=== PATIENT | male | born 1930 | race Caucasian/White ===

== ENCOUNTER 2018-07-22 08:58 | Inpatient (IN) | payer MEDICARE, BC, OTHER ==
[~2018-07-22] VITALS: Ht 180.3 cm; Wt 77.0 kg
[2018-07-22] MEDS ORDERED: ASPI-1265 PO (09:25)
[2018-07-22] MEDS ORDERED: TERA2CAP4 PO (09:25)
[2018-07-22 09:26] LABS: BASOPHILS % (AUTO) 0.4 % (0-1); EOSINOPHILS # (AUTO) 0.1 X10'3 (0-0.9); EOSINOPHILS % (AUTO) 1.8 % (0-6); HEMATOCRIT 41.7 % (42.0-52.0); HEMOGLOBIN 13.3 g/dl (14.0-17.9); LYMPHOCYTES # (AUTO) 1.1 X10'3 (1.1-4.8); LYMPHOCYTES % (AUTO) 18.5 % (21-51); MEAN CORPUSCULAR HEMOGLOBIN 28.6 PG (27.0-31.0); MEAN CORPUSCULAR HGB CONC 31.9 % (33.0-36.5); MEAN CORPUSCULAR VOLUME 89.5 FL (78-98); MONOCYTES # (AUTO) 0.5 X10'3 (0-0.9); MONOCYTES % (AUTO) 7.8 % (2-12); NEUTROPHILS # (AUTO) 4.3 X10'3 (1.8-7.7); NEUTROPHILS % (AUTO) 71.5 % (42-75); PLATELET COUNT 109 X10'3 (140-440); RED BLOOD COUNT 4.65 X10'6 (4.70-6.10); RED CELL DISTRIBUTION WIDTH 14.8 % (11.5-14.5)
[2018-07-22] MEDS ORDERED: NIA500ERT PO (09:26)
[2018-07-22] MEDS ORDERED: SIMV20TA5 PO (09:26)
[2018-07-22] MEDS ORDERED: GLYC10.7 (09:26)
[2018-07-22] MEDS ORDERED: metoprolol tartrate 1mg/ml inj IV ONE ×3 (09:35→11:10)
[2018-07-22 09:40] LABS: ALANINE AMINOTRANSFERASE 22 U/L (12-78); ALBUMIN 3.3 G/DL (3.4-5.0); ALBUMIN/GLOBULIN RATIO 1.1 (1.1-1.5); ALKALINE PHOSPHATASE 75 IU/L (46-116); ANION GAP 10 (8-16); ASPARTATE AMINO TRANSFERASE 23 U/L (10-37); BLOOD UREA NITROGEN 26 MG/DL (7-18); BUN/CREATININE RATIO 20.5 (5.4-32.0); CALCIUM 8.7 MG/DL (8.5-10.1); CHLORIDE 107 MMOL/L (99-107); CREATININE 1.27 MG/DL (0.60-1.10); GLUCOSE 97 MG/DL (70-104); POTASSIUM 4.3 MMOL/L (3.5-5.1); SODIUM 144 MMOL/L (135-145); TOTAL CARBON DIOXIDE 27.3 MMOL/L (24-32); TOTAL PROTEIN 6.2 G/DL (6.4-8.2); eGFR 54 ML/MIN
[2018-07-22] MEDS ORDERED: furosemide 10 MG/1 ML 10ml inj IV ONE (09:45)
[2018-07-22 09:47] LABS: MAGNESIUM 1.8 MG/DL (1.5-2.4)
[2018-07-22] MEDS ORDERED: normal saline 1000ML IV soln IVB ONE (10:20)
[2018-07-22] MEDS ORDERED: HYDROmorphone inj. 0.5 MG/0.5 ML DISP.SYRIN IV PRN (10:20)
[2018-07-22] MEDS ORDERED: LORazepam 2 mg/ml vial IV ONE (10:20)
[2018-07-22] MEDS ORDERED: metoclopramide 5 mg/ml inj IV ONE (10:20)
[2018-07-22] MEDS ORDERED: diltiazem 5mg/ml 5ml inj. IV ONE ×3 (11:40→12:40)
[2018-07-22] MEDS ORDERED: diltiazem 30mg tablet PO ONE ×3 (11:40→15:20)
[2018-07-22] MEDS ORDERED: enoxaparin 100mg/ml syringe SUBCUT ONE (13:15)
[2018-07-22] MEDS ORDERED: enoxaparin 80mg/0.8ml syringe SUBCUT ONE (13:20)
[2018-07-22] MEDS ORDERED: iohexol 350MG/ML 100ml bottle IV ONE (14:30)
[2018-07-22] MEDS ORDERED: mag hydrox/Alum hydrox/simeth 30ml oral suspension PO PRN (16:15)
[2018-07-22] MEDS ORDERED: magnesium 4gm in 100ml NS 100 ML IV PRN (16:15)
[2018-07-22] MEDS ORDERED: potassium Cl 40MEQ/NS 500ml 500 ML IV PRN ×2 (16:15)
[2018-07-22] MEDS ORDERED: morphine 2 MG/ML inj. syringe IV PRN (16:15)
[2018-07-22] MEDS ORDERED: potassium Cl 20 mEq SR tablet PO PRN ×2 (16:15)
[2018-07-22] MEDS ORDERED: HYDROcodone/acetaminophen 5mg/325mg tablet PO PRN (16:15)
[2018-07-22] MEDS ORDERED: magnesium 1gm/100ml D5W IVPB 100 ML IV PRN (16:15)
[2018-07-22] MEDS ORDERED: magnesium Cl slow-release 64mg tablet PO PRN (16:15)
[2018-07-22] MEDS ORDERED: acetaminophen 325mg tablet PO PRN ×2 (16:15)
[2018-07-22] MEDS ORDERED: ondansetron/PF 4mg/2ml inj IV PRN (16:15)
[2018-07-22] MEDS: normal saline 1000ml 1,000 ML IV SCH (16:59)
[2018-07-22] MEDS: diltiazem-NS 100mg/100ml 100 ML IV SCH (17:25)
[2018-07-22 17:50] VITALS: BP 113/90
[2018-07-22 19:00] VITALS: BP 121/84
[2018-07-22] MEDS: Terazosin 1mg capsule PO SCH (20:51)
[2018-07-22] MEDS: docusate sod 100mg capsule PO SCH (20:51)
[2018-07-22] MEDS: heparin, porcine 5000 units/ml vial SQ SCH (20:51)
[2018-07-22] MEDS: atorvastatin 10mg tablet PO SCH (20:52)
[2018-07-22 23:00] VITALS: BP 103/59
[2018-07-23] VITALS (11 sets, daily range): BP systolic 98–123; BP diastolic 75–96
[2018-07-23] MEDS: albuterol 2.5 MG/3 ML nebule NEB SCH ×3 (02:00→20:37)
[2018-07-23 05:13] LABS: BASOPHILS % (AUTO) 0.4 % (0-1); EOSINOPHILS # (AUTO) 0.2 X10'3 (0-0.9); EOSINOPHILS % (AUTO) 3.1 % (0-6); HEMATOCRIT 38.9 % (42.0-52.0); HEMOGLOBIN 12.3 g/dl (14.0-17.9); MEAN CORPUSCULAR HEMOGLOBIN 28.3 PG (27.0-31.0); MEAN CORPUSCULAR HGB CONC 31.6 % (33.0-36.5); MEAN CORPUSCULAR VOLUME 89.4 FL (78-98); MEAN PLATELET VOLUME 9.2 FL (7.4-10.4); MONOCYTES # (AUTO) 0.5 X10'3 (0-0.9); MONOCYTES % (AUTO) 9.7 % (2-12); NEUTROPHILS # (AUTO) 2.8 X10'3 (1.8-7.7); NEUTROPHILS % (AUTO) 50.8 % (42-75); PLATELET COUNT 95 X10'3 (140-440); RED BLOOD COUNT 4.35 X10'6 (4.70-6.10); RED CELL DISTRIBUTION WIDTH 14.4 % (11.5-14.5); WHITE BLOOD COUNT 5.6 X10'3 (4.5-11.0)
[2018-07-23 06:25] LABS: ALANINE AMINOTRANSFERASE 17 U/L (12-78); ALBUMIN 2.8 G/DL (3.4-5.0); ALBUMIN/GLOBULIN RATIO 1.1 (1.1-1.5); ALKALINE PHOSPHATASE 59 IU/L (46-116); ANION GAP 8 (8-16); ASPARTATE AMINO TRANSFERASE 22 U/L (10-37); BILIRUBIN,TOTAL 0.8 MG/DL (0.1-1.0); BLOOD UREA NITROGEN 26 MG/DL (7-18); BUN/CREATININE RATIO 21.3 (5.4-32.0); CALCIUM 8.5 MG/DL (8.5-10.1); CHLORIDE 109 MMOL/L (99-107); CREATININE 1.22 MG/DL (0.60-1.10); GLUCOSE 90 MG/DL (70-104); MAGNESIUM 1.8 MG/DL (1.5-2.4); POTASSIUM 4.3 MMOL/L (3.5-5.1); SODIUM 143 MMOL/L (135-145); TOTAL CARBON DIOXIDE 25.8 MMOL/L (24-32); TOTAL PROTEIN 5.4 G/DL (6.4-8.2); eGFR 56 ML/MIN
[2018-07-23] MEDS ORDERED: CefTRIAXone 2gm/D5W 50ml 50 ML IV SCH (08:00)
[2018-07-23] MEDS: K and/or MAG REPLACEMENT MC SCH (08:00)
[2018-07-23] MEDS: heparin, porcine 5000 units/ml vial SQ SCH ×2 (08:00→20:00)
[2018-07-23] MEDS: methylPREDNISolone sod succ 125mg/2ml vial IV SCH (08:08)
[2018-07-23] MEDS: docusate sod 100mg capsule PO SCH ×2 (08:10→21:21)
[2018-07-23] MEDS: aspirin 81mg tab.chew PO SCH (08:11)
[2018-07-23] MEDS: diltiazem-NS 100mg/100ml 100 ML IV SCH ×2 (09:21→12:24)
[2018-07-23] MEDS ORDERED: ipratropium/albuterol 3ml nebule NEB PRN (16:05)
[2018-07-23] MEDS ORDERED: digoxin 250mcg/ml 2ml ampule IV ONE (16:05)
[2018-07-23] MEDS: carVEDilol 3.125mg tablet PO SCH (20:00)
[2018-07-23] MEDS: atorvastatin 10mg tablet PO SCH (21:21)
[2018-07-23] MEDS: Terazosin 1mg capsule PO SCH (21:22)
[2018-07-24] MEDS: albuterol 2.5 MG/3 ML nebule NEB SCH ×6 (02:00→20:18)
[2018-07-24 05:18] LABS: BASOPHILS % (AUTO) 0.2 % (0-1); EOSINOPHILS # (AUTO) 0.1 X10'3 (0-0.9); EOSINOPHILS % (AUTO) 1.3 % (0-6); HEMATOCRIT 39.8 % (42.0-52.0); HEMOGLOBIN 12.7 g/dl (14.0-17.9); LYMPHOCYTES % (AUTO) 14.3 % (21-51); MEAN CORPUSCULAR HEMOGLOBIN 28.5 PG (27.0-31.0); MEAN CORPUSCULAR VOLUME 89.2 FL (78-98); MEAN PLATELET VOLUME 9.2 FL (7.4-10.4); MONOCYTES # (AUTO) 0.2 X10'3 (0-0.9); MONOCYTES % (AUTO) 3.6 % (2-12); NEUTROPHILS # (AUTO) 5.4 X10'3 (1.8-7.7); NEUTROPHILS % (AUTO) 80.6 % (42-75); PLATELET COUNT 104 X10'3 (140-440); RED BLOOD COUNT 4.46 X10'6 (4.70-6.10); RED CELL DISTRIBUTION WIDTH 14.6 % (11.5-14.5); WHITE BLOOD COUNT 6.7 X10'3 (4.5-11.0)
[2018-07-24 05:33] LABS: ALANINE AMINOTRANSFERASE 19 U/L (12-78); ALBUMIN 2.9 G/DL (3.4-5.0); ALKALINE PHOSPHATASE 61 IU/L (46-116); ANION GAP 6 (8-16); ASPARTATE AMINO TRANSFERASE 17 U/L (10-37); BILIRUBIN,TOTAL 0.6 MG/DL (0.1-1.0); BLOOD UREA NITROGEN 27 MG/DL (7-18); BUN/CREATININE RATIO 24.3 (5.4-32.0); CALCIUM 8.8 MG/DL (8.5-10.1); CHLORIDE 106 MMOL/L (99-107); CREATININE 1.11 MG/DL (0.60-1.10); GLUCOSE 139 MG/DL (70-104); MAGNESIUM 1.9 MG/DL (1.5-2.4); SODIUM 143 MMOL/L (135-145); TOTAL CARBON DIOXIDE 30.8 MMOL/L (24-32); TOTAL PROTEIN 5.8 G/DL (6.4-8.2); eGFR 63 ML/MIN
[2018-07-24] MEDS: K and/or MAG REPLACEMENT MC SCH (08:00)
[2018-07-24] MEDS: diltiazem-NS 100mg/100ml 100 ML IV SCH (08:14)
[2018-07-24] MEDS: docusate sod 100mg capsule PO SCH ×2 (08:15→21:37)
[2018-07-24] MEDS: aspirin 81mg tab.chew PO SCH (08:15)
[2018-07-24] MEDS: heparin, porcine 5000 units/ml vial SQ SCH ×2 (08:16→21:38)
[2018-07-24] MEDS: carVEDilol 3.125mg tablet PO SCH (08:16)
[2018-07-24] MEDS: methylPREDNISolone sod succ 125mg/2ml vial IV SCH (08:17)
[2018-07-24] MEDS ORDERED: carVEDilol 3.125mg tablet PO ONE (10:00)
[2018-07-24 11:00] VITALS: BP 116/98
[2018-07-24] MEDS: diltiazem-D5W 125mg/125ml 125 ML IV SCH (13:28)
[2018-07-24 15:00] VITALS: BP 104/80
[2018-07-24] MEDS: normal saline 1000ml 1,000 ML IV SCH (16:15)
[2018-07-24 19:00] VITALS: BP 111/79
[2018-07-24] MEDS ORDERED: carvedilol 6.25mg tablet PO SCH (20:00)
[2018-07-24 21:00] VITALS: BP 115/79
[2018-07-24] MEDS: Terazosin 1mg capsule PO SCH (21:35)
[2018-07-24] MEDS: atorvastatin 10mg tablet PO SCH (21:36)
[2018-07-24 23:00] VITALS: BP 118/94
[2018-07-25] VITALS (7 sets, daily range): BP systolic 98–121; BP diastolic 78–94
[2018-07-25] MEDS: diltiazem-D5W 125mg/125ml 125 ML IV SCH (00:51)
[2018-07-25] MEDS: albuterol 2.5 MG/3 ML nebule NEB SCH ×4 (02:00→21:51)
[2018-07-25 05:04] LABS: BASOPHILS % (AUTO) 0.4 % (0-1); EOSINOPHILS % (AUTO) 0 % (0-6); HEMATOCRIT 39.4 % (42.0-52.0); HEMOGLOBIN 12.7 g/dl (14.0-17.9); LYMPHOCYTES # (AUTO) 0.9 X10'3 (1.1-4.8); MEAN CORPUSCULAR HEMOGLOBIN 28.4 PG (27.0-31.0); MEAN CORPUSCULAR HGB CONC 32.2 % (33.0-36.5); MEAN CORPUSCULAR VOLUME 88.3 FL (78-98); MEAN PLATELET VOLUME 9.1 FL (7.4-10.4); MONOCYTES # (AUTO) 0.4 X10'3 (0-0.9); MONOCYTES % (AUTO) 4.4 % (2-12); NEUTROPHILS # (AUTO) 7.8 X10'3 (1.8-7.7); NEUTROPHILS % (AUTO) 85.2 % (42-75); PLATELET COUNT 106 X10'3 (140-440); RED BLOOD COUNT 4.46 X10'6 (4.70-6.10); RED CELL DISTRIBUTION WIDTH 14.7 % (11.5-14.5); WHITE BLOOD COUNT 9.1 X10'3 (4.5-11.0)
[2018-07-25 05:34] LABS: ALANINE AMINOTRANSFERASE 18 U/L (12-78); ALBUMIN 2.8 G/DL (3.4-5.0); ALKALINE PHOSPHATASE 63 IU/L (46-116); ANION GAP 6 (8-16); ASPARTATE AMINO TRANSFERASE 16 U/L (10-37); BILIRUBIN,TOTAL 0.6 MG/DL (0.1-1.0); BLOOD UREA NITROGEN 30 MG/DL (7-18); BUN/CREATININE RATIO 27.3 (5.4-32.0); CALCIUM 8.4 MG/DL (8.5-10.1); CHLORIDE 104 MMOL/L (99-107); GLUCOSE 125 MG/DL (70-104); MAGNESIUM 1.8 MG/DL (1.5-2.4); POTASSIUM 4.7 MMOL/L (3.5-5.1); SODIUM 137 MMOL/L (135-145); TOTAL CARBON DIOXIDE 27.2 MMOL/L (24-32); TOTAL PROTEIN 5.6 G/DL (6.4-8.2); eGFR 63 ML/MIN
[2018-07-25] MEDS: K and/or MAG REPLACEMENT MC SCH (07:16)
[2018-07-25] MEDS ORDERED: furosemide 20 MG/2 ML vial IV ONE (07:40)
[2018-07-25] MEDS ORDERED: carVEDilol 12.5mg tablet PO SCH (08:00)
[2018-07-25] MEDS: aspirin 81mg tab.chew PO SCH (08:43)
[2018-07-25] MEDS: docusate sod 100mg capsule PO SCH ×2 (08:44→20:42)
[2018-07-25] MEDS: methylPREDNISolone sod succ 125mg/2ml vial IV SCH (08:44)
[2018-07-25] MEDS: heparin, porcine 5000 units/ml vial SQ SCH ×2 (08:44→20:43)
[2018-07-25] MEDS ORDERED: sotalol 80mg tablet PO ONE (10:00)
[2018-07-25] MEDS: polyethylene glycol 3350 17gm powd pack PO SCH (13:23)
[2018-07-25] MEDS ORDERED: NUT.TX.GLUC.INTOLER,LAC-FR,SOY (GLUCERNA) 237 ML PO SCH (15:15)
[2018-07-25] MEDS: atorvastatin 10mg tablet PO SCH (20:43)
[2018-07-25] MEDS: sotalol 80mg tablet PO SCH (20:44)
[2018-07-25] MEDS: Terazosin 1mg capsule PO SCH (20:44)
[2018-07-26] MEDS: albuterol 2.5 MG/3 ML nebule NEB SCH ×4 (02:54→20:18)
[2018-07-26 06:00] VITALS: BP 120/90
[2018-07-26 06:31] LABS: BASOPHILS % (AUTO) 0.5 % (0-1); EOSINOPHILS % (AUTO) 0 % (0-6); HEMATOCRIT 40.2 % (42.0-52.0); HEMOGLOBIN 12.9 g/dl (14.0-17.9); LYMPHOCYTES # (AUTO) 1.2 X10'3 (1.1-4.8); LYMPHOCYTES % (AUTO) 13.1 % (21-51); MEAN CORPUSCULAR HEMOGLOBIN 28.4 PG (27.0-31.0); MEAN CORPUSCULAR VOLUME 88.8 FL (78-98); MEAN PLATELET VOLUME 9.6 FL (7.4-10.4); MONOCYTES # (AUTO) 0.5 X10'3 (0-0.9); NEUTROPHILS # (AUTO) 7.8 X10'3 (1.8-7.7); NEUTROPHILS % (AUTO) 81.4 % (42-75); PLATELET COUNT 104 X10'3 (140-440); RED BLOOD COUNT 4.53 X10'6 (4.70-6.10); RED CELL DISTRIBUTION WIDTH 14.8 % (11.5-14.5); WHITE BLOOD COUNT 9.5 X10'3 (4.5-11.0)
[2018-07-26 06:54] LABS: ALANINE AMINOTRANSFERASE 20 U/L (12-78); ALBUMIN 2.5 G/DL (3.4-5.0); ALBUMIN/GLOBULIN RATIO 0.9 (1.1-1.5); ALKALINE PHOSPHATASE 53 IU/L (46-116); ANION GAP 7 (8-16); ASPARTATE AMINO TRANSFERASE 28 U/L (10-37); BILIRUBIN,TOTAL 0.6 MG/DL (0.1-1.0); BLOOD UREA NITROGEN 33 MG/DL (7-18); BUN/CREATININE RATIO 35.1 (5.4-32.0); CALCIUM 8.3 MG/DL (8.5-10.1); CHLORIDE 104 MMOL/L (99-107); CREATININE 0.94 MG/DL (0.60-1.10); GLUCOSE 102 MG/DL (70-104); MAGNESIUM 1.9 MG/DL (1.5-2.4); POTASSIUM 4.9 MMOL/L (3.5-5.1); SODIUM 137 MMOL/L (135-145); TOTAL CARBON DIOXIDE 25.7 MMOL/L (24-32); TOTAL PROTEIN 5.4 G/DL (6.4-8.2); eGFR 76 ML/MIN
[2018-07-26] MEDS: polyethylene glycol 3350 17gm powd pack PO SCH (08:00)
[2018-07-26] MEDS: K and/or MAG REPLACEMENT MC SCH (08:00)
[2018-07-26] MEDS ORDERED: nitroGLYCERIN-Tridil 50MG/D5W 250 ML IV ONE (08:50)
[2018-07-26] MEDS ORDERED: midazolam 2 mg/2 ml injection ONE ×2 (08:51→09:59)
[2018-07-26] MEDS ORDERED: LIDOcaine 1% 30ml preserv. free vial ONE (08:51)
[2018-07-26] MEDS ORDERED: fentaNYL/PF 50MCG/1 ML 2ML syringe ONE ×2 (08:51→09:59)
[2018-07-26] MEDS ORDERED: heparin 1,000unit/ml 10ml vial 10 ML ONE (08:51)
[2018-07-26] MEDS ORDERED: iohexol 350 MG/ML 50ML vial IV ONE (08:51)
[2018-07-26] MEDS ORDERED: iohexol 350MG/ML 100ml bottle IV ONE (08:51)
[2018-07-26] MEDS ORDERED: morphine 10mg/ml inj. IM ONE (09:00)
[2018-07-26] MEDS ORDERED: MIDAZolam 1mg/ml 10ml vial IV ONE (09:00)
[2018-07-26] MEDS: methylPREDNISolone sod succ/PF 40mg inj. IV SCH (09:17)
[2018-07-26] MEDS: aspirin 81mg tab.chew PO SCH (09:18)
[2018-07-26] MEDS: sotalol 80mg tablet PO SCH (09:18)
[2018-07-26] MEDS: heparin, porcine 5000 units/ml vial SQ SCH (09:18)
[2018-07-26] MEDS: docusate sod 100mg capsule PO SCH ×2 (09:19→20:51)
[2018-07-26] MEDS ORDERED: DOPamine 400mg/D5W 250ml 250 ML IV ONE (10:56)
[2018-07-26 11:00] VITALS: BP 111/73
[2018-07-26] MEDS: DOPamine 400MG/D5W 250ML CRITICAL CARE IV SCH (12:45)
[2018-07-26 15:00] VITALS: BP 117/79
[2018-07-26] MEDS: normal saline 1000ml 1,000 ML IV SCH (16:15)
[2018-07-26 18:00] VITALS: BP 132/85
[2018-07-26] MEDS: sotalol 40mg tablet PO SCH (20:51)
[2018-07-26] MEDS: atorvastatin 10mg tablet PO SCH (20:51)
[2018-07-26] MEDS: Terazosin 1mg capsule PO SCH (21:00)
[2018-07-27 02:00] VITALS: BP 132/90
[2018-07-27] MEDS: albuterol 2.5 MG/3 ML nebule NEB SCH ×2 (02:56→08:00)
[2018-07-27 04:57] LABS: BASOPHILS % (AUTO) 0.5 % (0-1); EOSINOPHILS % (AUTO) 0 % (0-6); HEMATOCRIT 37.9 % (42.0-52.0); LYMPHOCYTES # (AUTO) 1.3 X10'3 (1.1-4.8); LYMPHOCYTES % (AUTO) 15.1 % (21-51); MEAN CORPUSCULAR HEMOGLOBIN 28.2 PG (27.0-31.0); MEAN CORPUSCULAR HGB CONC 31.7 % (33.0-36.5); MEAN PLATELET VOLUME 9.1 FL (7.4-10.4); MONOCYTES # (AUTO) 0.7 X10'3 (0-0.9); MONOCYTES % (AUTO) 8.1 % (2-12); NEUTROPHILS # (AUTO) 6.4 X10'3 (1.8-7.7); NEUTROPHILS % (AUTO) 76.3 % (42-75); PLATELET COUNT 95 X10'3 (140-440); RED BLOOD COUNT 4.26 X10'6 (4.70-6.10); RED CELL DISTRIBUTION WIDTH 14.8 % (11.5-14.5); WHITE BLOOD COUNT 8.4 X10'3 (4.5-11.0)
[2018-07-27 05:12] LABS: ALANINE AMINOTRANSFERASE 23 U/L (12-78); ALBUMIN 2.5 G/DL (3.4-5.0); ALKALINE PHOSPHATASE 54 IU/L (46-116); ANION GAP 6 (8-16); ASPARTATE AMINO TRANSFERASE 19 U/L (10-37); BILIRUBIN,TOTAL 0.5 MG/DL (0.1-1.0); BLOOD UREA NITROGEN 36 MG/DL (7-18); BUN/CREATININE RATIO 34.6 (5.4-32.0); CALCIUM 8.1 MG/DL (8.5-10.1); CHLORIDE 103 MMOL/L (99-107); CREATININE 1.04 MG/DL (0.60-1.10); GLUCOSE 109 MG/DL (70-104); MAGNESIUM 2.1 MG/DL (1.5-2.4); POTASSIUM 4.7 MMOL/L (3.5-5.1); SODIUM 139 MMOL/L (135-145); TOTAL CARBON DIOXIDE 30.1 MMOL/L (24-32); eGFR 68 ML/MIN
[2018-07-27] MEDS: DOPamine 400MG/D5W 250ML CRITICAL CARE IV SCH (06:04)
[2018-07-27 07:00] VITALS: BP 123/95
[2018-07-27] MEDS: methylPREDNISolone sod succ/PF 40mg inj. IV SCH (07:39)
[2018-07-27] MEDS: polyethylene glycol 3350 17gm powd pack PO SCH (07:39)
[2018-07-27] MEDS: docusate sod 100mg capsule PO SCH (07:40)
[2018-07-27] MEDS: sotalol 40mg tablet PO SCH (07:40)
[2018-07-27] MEDS: aspirin 81mg tab.chew PO SCH (07:40)
[2018-07-27] MEDS: K and/or MAG REPLACEMENT MC SCH (07:56)
[2018-07-27] MEDS ORDERED: spironolactone 25 MG tablet PO SCH (08:30)
[2018-07-27] MEDS ORDERED: furosemide 20 MG/2 ML vial IV ONE (10:10)
[2018-07-27] MEDS ORDERED: lisinopril 2.5mg tablet PO SCH (12:00)
[2018-07-27 12:45] VITALS: BP_SYST 130
[2018-07-27] MEDS ORDERED: SPIR25TA PO (13:35)
[2018-07-27] MEDS ORDERED: LISI2.5T2 PO (13:35)
[2018-07-27] MEDS ORDERED: APIX2.5T PO (13:35)
[2018-07-27] MEDS ORDERED: FURO-150 PO (13:35)
[2018-07-27] MEDS ORDERED: SOTA80TA73 PO (13:35)
[2018-07-27] MEDS ORDERED: PRED10TA PO (13:38)
[2018-07-27] MEDS ORDERED: sotalol 40mg tablet PO SCH (20:00)
[2018-07-27] MEDS ORDERED: sotalol 80mg tablet PO SCH (20:00)
[2018-07-31 07:56] LABS: ISTAT HGB ART 13.3 g/dl (14.0-18.0); ISTAT Hct ART 39 %PCV (42-52); ISTAT O2 SATURATION ARTERIAL 97 % (95-98); ISTAT SOURCE ART
[2018-07-31 07:56] LABS: ISTAT Hct MIX 38 %PCV (42-52); ISTAT O2 SATURATION MIX VENOUS 46 % (60-80); ISTAT SOURCE MIX
== END 2018-07-27 16:18 | disposition home or self-care (01) | DRG 286 ==
LOC: ER 08:58 → ED HOLD 16:15 → EDBEDREQTM 16:48 → EDBEDREQ 16:48 → PCU 3S 17:56
PROVIDERS: ADMIT Internal Medicine; ATTEND Family Medicine
PROC: B3201ZZ Computerized Tomography (CT Scan) of Thoracic Aorta using Low Osmolar Contrast (ICD-10-PCS; 2018-07-22)
PROC: B32T1ZZ Computerized Tomography (CT Scan) of Left Pulmonary Artery using Low Osmolar Contrast (ICD-10-PCS; 2018-07-22)
PROC: B32S1ZZ Computerized Tomography (CT Scan) of Right Pulmonary Artery using Low Osmolar Contrast (ICD-10-PCS; 2018-07-22)
PROC: 4A023N8 Measurement of Cardiac Sampling and Pressure, Bilateral, Percutaneous Approach (ICD-10-PCS; principal; 2018-07-26)
PROC: B2111ZZ Fluoroscopy of Multiple Coronary Arteries using Low Osmolar Contrast (ICD-10-PCS; 2018-07-26)
PROC: B2151ZZ Fluoroscopy of Left Heart using Low Osmolar Contrast (ICD-10-PCS; 2018-07-26)
PROC: 5A2204Z Restoration of Cardiac Rhythm, Single (ICD-10-PCS; 2018-07-26)
DX: I48.91 Unspecified atrial fibrillation (principal); I50.21 Acute systolic (congestive) heart failure; N18.3 Chronic kidney disease, stage 3 (moderate); E78.5 Hyperlipidemia, unspecified; D69.6 Thrombocytopenia, unspecified; R09.02 Hypoxemia; I34.0 Nonrheumatic mitral (valve) insufficiency; I35.0 Nonrheumatic aortic (valve) stenosis; J44.9 Chronic obstructive pulmonary disease, unspecified; D71 Functional disorders of polymorphonuclear neutrophils; R79.1 Abnormal coagulation profile; Z79.01 Long term (current) use of anticoagulants; Z79.82 Long term (current) use of aspirin; Z79.899 Other long term (current) drug therapy; Z87.891 Personal history of nicotine dependence; Z71.6 Tobacco abuse counseling
CPT/HCPCS: 36415; 71045; 71275; 80053; 82803; 83605; 83735; 83880; 84484; 85014; 85025; 85379; 87040; 87070; 92960; 93005; 93306; 93312; 93460; 93970; 94640; 94760; 96372; 96374; 96375; 96376; 97110; 97116; 97162; 97530; 99152; 99153; 99285; A4620; A6257; C1760; C1769; G0378; J0696; J1160; J1170; J1265; J1644; J1650; J1940; J2250; J2405; J2920; J2930; J3010; J3490; J7030; Q9967

== ENCOUNTER 2021-01-27 07:01 | Day surgery (SDC) | payer MEDICARE, BC ==
[2021-01-26 11:45] LABS: BASOPHILS # (AUTO) 0.1 X10'3 (0-0.2); BASOPHILS % (AUTO) 0.8 % (0-1); EOSINOPHILS # (AUTO) 0.3 X10'3 (0-0.9); EOSINOPHILS % (AUTO) 3.1 % (0-6); HEMATOCRIT 41.9 % (42.0-52.0); HEMOGLOBIN 13.6 g/dl (14.0-17.9); LYMPHOCYTES # (AUTO) 2.7 X10'3 (1.1-4.8); MEAN CORPUSCULAR HEMOGLOBIN 29.5 PG (27.0-31.0); MEAN CORPUSCULAR HGB CONC 32.4 g/dL (33.0-36.5); MEAN CORPUSCULAR VOLUME 91.1 FL (78-98); MEAN PLATELET VOLUME 8.4 FL (7.4-10.4); MONOCYTES # (AUTO) 0.8 X10'3 (0-0.9); NEUTROPHILS # (AUTO) 5.3 X10'3 (1.8-7.7); NEUTROPHILS % (AUTO) 58.1 % (42-75); PLATELET COUNT 155 X10'3 (140-440); RED CELL DISTRIBUTION WIDTH 15.6 % (11.5-14.5); WHITE BLOOD COUNT 9.2 X10'3 (4.5-11.0)
[2021-01-26 12:02] LABS: ALBUMIN 3.2 G/DL (3.4-5.0); ANION GAP 4 (8-16); BLOOD UREA NITROGEN 29 MG/DL (7-18); BUN/CREATININE RATIO 21.8 (5.4-32.0); CALCIUM 8.6 MG/DL (8.5-10.1); CHLORIDE 102 MMOL/L (99-107); CREATININE 1.33 MG/DL (0.60-1.10); GLUCOSE 77 MG/DL (70-104); POTASSIUM 4.5 MMOL/L (3.5-5.1); SODIUM 139 MMOL/L (135-145); eGFR 51 ML/MIN
[~2021-01-27] VITALS: Ht 182.9 cm; Wt 59.4 kg
[2021-01-27] VITALS (9 sets, daily range): BP systolic 76–92; BP diastolic 51–69
[~2021-01-27 07:01] MED LIST: APIX2.5T PO; ASPI-1265 PO; FURO-150 PO; GLYC10.7; LISI2.5T2 PO; NIA500ERT PO; PRED10TA PO; SIMV-42 PO; SOTA80TA73 PO; SPIR25TA PO; TERA2CAP4 PO
[2021-01-27] MEDS ORDERED: amiodarone 150mg/dext, iso-os 100 ML IV ONE (07:40)
[2021-01-27] MEDS ORDERED: morphine 10mg/ml inj. IV ONE (07:40)
[2021-01-27] MEDS ORDERED: MIDAZolam 1mg/ml 10ml vial IV ONE (07:40)
[2021-01-27] MEDS ORDERED: diphenhydrAMINE 25mg capsule PO ONE (07:40)
[2021-01-27] MEDS ORDERED: normal saline 1000ml 1,000 ML IV SCH (07:40)
[2021-01-27] MEDS ORDERED: LORazepam 0.5 MG tablet PO ONE (07:40)
[2021-01-27] MEDS ORDERED: atropine 0.1mg/ml 10ml syringe IV ONE (07:40)
[2021-01-27] MEDS ORDERED: APIX5TAB3 PO (07:56)
[2021-01-27] MEDS ORDERED: SOTA80TA73 PO (07:56)
[2021-01-27] MEDS ORDERED: LISI2.5T2 PO (07:56)
[2021-01-27] MEDS ORDERED: IPRA3AMP9 IH (07:56)
[2021-01-27] MEDS ORDERED: SIMV-45 PO (07:56)
[2021-01-27] MEDS ORDERED: SPIR25TA PO (07:56)
[2021-01-27] MEDS ORDERED: FURO-150 PO (07:56)
== END 2021-01-27 10:30 | disposition home or self-care (01) ==
LOC: SSTAY O 07:01
PROVIDERS: ATTEND Internal Medicine Cardiovascular Disease
DX: I48.19 Other persistent atrial fibrillation (principal); J44.9 Chronic obstructive pulmonary disease, unspecified; I42.9 Cardiomyopathy, unspecified
CPT/HCPCS: 36415; 80048; 85025; 85610; 92960; 93005; 94760; 94799; J2250; J2270; J7030

== ENCOUNTER 2021-03-31 07:04 | Day surgery (SDC) | payer MEDICARE, BC ==
[2021-03-30 10:12] LABS: BASOPHILS % (AUTO) 0.7 % (0-1); EOSINOPHILS # (AUTO) 0.3 X10'3 (0-0.9); EOSINOPHILS % (AUTO) 4.7 % (0-6); HEMATOCRIT 37.6 % (42.0-52.0); HEMOGLOBIN 12.1 g/dl (14.0-17.9); LYMPHOCYTES # (AUTO) 2.5 X10'3 (1.1-4.8); LYMPHOCYTES % (AUTO) 33.8 % (21-51); MEAN CORPUSCULAR HEMOGLOBIN 28.7 PG (27.0-31.0); MEAN CORPUSCULAR HGB CONC 32.1 g/dL (33.0-36.5); MEAN CORPUSCULAR VOLUME 89.4 FL (78-98); MEAN PLATELET VOLUME 8.1 FL (7.4-10.4); MONOCYTES # (AUTO) 0.7 X10'3 (0-0.9); MONOCYTES % (AUTO) 9.3 % (2-12); NEUTROPHILS # (AUTO) 3.8 X10'3 (1.8-7.7); NEUTROPHILS % (AUTO) 51.5 % (42-75); PLATELET COUNT 184 X10'3 (140-440); RED BLOOD COUNT 4.21 X10'6 (4.70-6.10); RED CELL DISTRIBUTION WIDTH 14.1 % (11.5-14.5); WHITE BLOOD COUNT 7.3 X10'3 (4.5-11.0)
[2021-03-30 10:15] LABS: ALBUMIN 3.3 G/DL (3.4-5.0); ANION GAP 1 (8-16); BLOOD UREA NITROGEN 18 MG/DL (7-18); BUN/CREATININE RATIO 16.7 (5.4-32.0); CALCIUM 8.9 MG/DL (8.5-10.1); CHLORIDE 103 MMOL/L (99-107); CREATININE 1.08 MG/DL (0.60-1.10); GLUCOSE 92 MG/DL (70-104); POTASSIUM 4.3 MMOL/L (3.5-5.1); SODIUM 140 MMOL/L (135-145); TOTAL CARBON DIOXIDE 36.1 MMOL/L (24-32); eGFR 64 ML/MIN
[~2021-03-31] VITALS: Ht 182.9 cm; Wt 57.2 kg
[2021-03-31] VITALS (15 sets, daily range): BP systolic 96–129; BP diastolic 48–85
[~2021-03-31 07:04] MED LIST changes: -APIX2.5T PO; +APIX5TAB3 PO; -ASPI-1265 PO; -GLYC10.7; +IPRA3AMP9 IH; +LISI2.5T14 PO; -LISI2.5T2 PO; -NIA500ERT PO; -PRED10TA PO; -SIMV-42 PO; +SIMV-45 PO; -TERA2CAP4 PO
[2021-03-31] MEDS ORDERED: normal saline 1000ml 1,000 ML IV SCH (07:30)
[2021-03-31] MEDS ORDERED: Cefazolin 2GM/100ML NS IVPB 100 ML IV ONE (07:35)
[2021-03-31 08:19] LABS: PARTIAL THROMBOPLASTIN TIME 31 SECONDS (22-32)
[2021-03-31] MEDS ORDERED: midazolam 1 mg/ML 2ml injection ONE (09:07)
[2021-03-31] MEDS ORDERED: ceFAZolin 1000mg inj ONE (09:07)
[2021-03-31] MEDS ORDERED: fentaNYL/PF 50MCG/1 ML 2ML syringe ONE (09:07)
[2021-03-31] MEDS ORDERED: LIDOcaine 1% W/epiNEPHrine 1:100,000 20ml vial ONE (09:07)
[2021-03-31] MEDS ORDERED: HYDROcodone/acetaminophen 10/325mg tab PO PRN (11:45)
[2021-03-31] MEDS ORDERED: HYDROcodone/acetaminophen 5mg/325mg tablet PO PRN (11:45)
[2021-03-31] MEDS ORDERED: vancomycin/NS 1 GM ADD-VANTAGE 250 ML IV ONE (12:00)
== END 2021-03-31 17:15 | disposition home or self-care (01) ==
LOC: SSTAY O 07:04
PROVIDERS: ATTEND Internal Medicine Cardiovascular Disease
DX: I49.5 Sick sinus syndrome (principal); I25.119 Atherosclerotic heart disease of native coronary artery with unspecified angina pectoris; E78.5 Hyperlipidemia, unspecified; J44.9 Chronic obstructive pulmonary disease, unspecified; I48.0 Paroxysmal atrial fibrillation; I47.1 Supraventricular tachycardia; I42.0 Dilated cardiomyopathy; I50.9 Heart failure, unspecified; I08.1 Rheumatic disorders of both mitral and tricuspid valves; Z98.890 Other specified postprocedural states; Z98.49 Cataract extraction status, unspecified eye; F17.210 Nicotine dependence, cigarettes, uncomplicated; Z72.89 Other problems related to lifestyle; Z79.899 Other long term (current) drug therapy
CPT/HCPCS: 33208; 36415; 71046; 80048; 85025; 85610; 85730; 93005; 99152; 99153; C1785; C1894; C1898; J0690; J2250; J3010; J3370; A4565; A4620; A6258